=== PATIENT | female | born 1950 | race Caucasian/White ===

== ENCOUNTER 2018-05-03 14:36 | Inpatient (IN) | payer BC, OTHER ==
--- NOTE | 2018-05-03 15:05 | EDPHY ---
H & P Stated Complaint: SOB x 2 weeks worse today Time Seen by Provider: 05/03/18 15:00 HPI/ROS: CHIEF COMPLAINT: Worsening dyspnea HISTORY OF PRESENT ILLNESS: The patient presents to the ED with increasing dyspnea over the past 2 weeks. She reports primarily dyspnea on exertion. She denies orthopnea or PND. The patient has been experiencing significant bilateral lower extremity edema. The patient denies recent contact with the primary care provider. She takes no regular medications. She does not smoke. The patient denies any fever, cough or congestion. She denies any abdominal pain, vomiting or diarrhea. She reports her dyspnea is moderate to severe in nature. REVIEW OF SYSTEMS: A comprehensive 10 point review of systems is otherwise negative aside from elements mentioned in the history of present illness. Source: Patient Exam Limitations: No limitations - Medical/Surgical History Hx Asthma: No Hx Chronic Respiratory Disease: No Hx Diabetes: No Hx Cardiac Disease: No Hx Renal Disease: No Hx Cirrhosis: No Hx Alcoholism: No Hx HIV/AIDS: No Hx Splenectomy or Spleen Trauma: No Other PMH: denies - Social History Smoking Status: Never smoked - Physical Exam Exam: General Appearance: Alert, no distress Eyes: Pupils equal and round no pallor or injection ENT, Mouth: Mucous membranes moist Respiratory: Distant breath sounds bilaterally Cardiovascular: Regular rate and rhythm Gastrointestinal: Abdomen is soft and nontender, no masses, bowel sounds normal Neurological: 5/5 strength noted all 4 extremities Skin: Warm and dry, no rashes, plethora Musculoskeletal: Neck is supple nontender Extremities: 3+ bilateral pitting edema Psychiatric: Patient is oriented X 3, there is no agitation Constitutional: Initial Vital Signs Temperature (C) 36.7 C 05/03/18 14:42 Heart Rate 99 05/03/18 14:42 Respiratory Rate 24 H 05/03/18 14:42 Blood Pressure 178/89 H 05/03/18 14:42 O2 Sat (%) 86 L 05/03/18 14:42 O2 Delivery Mode Room Air O2 (L/minute) 3 Allergies/Adverse Reactions: No Known Allergies Allergy (Unverified 08/08/10 20:58) Home Medications: Medication Instructions Recorded NK [No Known Home Meds] 05/03/18 Medical Decision Making - Diagnostics EKG Interpretation: EKG: Complete interpretation has been separately recorded in the [facility] archive. Summary impression: Sinus rhythm, rate 89, PVCs, bifascicular block Imaging Results: Imaging Impressions Chest X-Ray 05/03/18 15:03 Impression: 1. Cardiomegaly with a small right effusion with associated atelectasis, suggesting CHF. 2. Marked fullness in the right hilum most likely related to pulmonary artery hypertension, however, incompletely assessed on radiographs. CT may be useful for further evaluation. Findings discussed with Dr. Adonis Samuel on 05/03/2018 at 16:17. ED Course/Re-evaluation: The patient presents to the ED with acute hypoxemia and shortness of breath. The patient is noted to have evidence of congestive heart failure which is a new diagnosis. The patient did receive supplemental oxygen. She was treated with 20 mg of IV Lasix. The patient's EKG demonstrated no evidence of active ischemia. The patient's troponin is normal. The patient's proBNP is elevated. I do feel the patient needs to be admitted to the hospital for further evaluation and management of her acute hypoxemic respiratory failure and undiagnosed CHF. Consultation is made with the hospitalist service. I spoke with Dr. Belen Lewis at 4:15 p.m.. She will admit the patient this evening. I re-evaluated the patient at 4:30 p.m.. She is comfortable with the plan for admission and further workup. Differential Diagnosis: Differential diagnosis considered includes congestive heart failure, myocardial infarction, dehydration, metabolic abnormality, critical anemia - Data Points Laboratory Results: Laboratory Results 05/03/18 15:20 05/03/18 15:20 05/03/18 05/03/18 05/03/18 15:26 15:20 15:20 WBC 8.14 10^3/uL 10^3/uL (3.80-9.50) RBC 5.30 10^6/uL 10^6/uL (4.18-5.33) Hgb 17.8 g/dL H g/dL (12.6-16.3) Hct 54.1 % H % (38.0-47.0) MCV 102.1 fL H fL (81.5-99.8) MCH 33.6 pg pg (27.9-34.1) MCHC 32.9 g/dL g/dL (32.4-36.7) RDW 13.7 % % (11.5-15.2) Plt Count 180 10^3/uL 10^3/uL (150-400) MPV 10.7 fL fL (8.7-11.7) Neut % (Auto) 76.0 % H % (39.3-74.2) Lymph % (Auto) 14.4 % L % (15.0-45.0) [place] % (Auto) 7.9 % % (4.5-13.0) Eos % (Auto) 0.7 % % (0.6-7.6) Baso % (Auto) 0.6 % % (0.3-1.7) Nucleat RBC Rel Count 0.0 % % (0.0-0.2) Absolute Neuts (auto) 6.19 10^3/uL 10^3/uL (1.70-6.50) Absolute Lymphs (auto) 1.17 10^3/uL 10^3/uL (1.00-3.00) Absolute Monos (auto) 0.64 10^3/uL 10^3/uL (0.30-0.80) Absolute Eos (auto) 0.06 10^3/uL 10^3/uL (0.03-0.40) Absolute Basos (auto) 0.05 10^3/uL 10^3/uL (0.02-0.10) Absolute Nucleated RBC 0.00 10^3/uL 10^3/uL (0-0.01) Immature Gran % 0.4 % % (0.0-1.1) Immature Gran # 0.03 10^3/uL 10^3/uL (0.00-0.10) Sodium 139 mEq/L mEq/L (135-145) Potassium 5.3 mEq/L H mEq/L (3.5-5.2) Chloride 104 mEq/L mEq/L (97-110) Carbon Dioxide 27 mEq/l mEq/l (22-31) Anion Gap 8 mEq/L mEq/L (6-14) BUN 14 mg/dL mg/dL (7-23) Creatinine 0.8 mg/dL mg/dL (0.6-1.0) Estimated GFR > 60 Glucose 106 mg/dL H mg/dL (70-100) Calcium 9.5 mg/dL mg/dL (8.5-10.4) POC Troponin I 0.03 ng/mL ng/mL (0.00-0.08) NT-Pro-B Natriuret Pep 2540 pg/mL H pg/mL (0-125) Point of Care Test Results: Chemistry 05/03/18 15:26 POC Troponin I 0.03 ng/mL ng/mL (0.00-0.08) Departure - Departure Disposition: [facility] Inpatient Acute Clinical Impression: Acute decompensated heart failure Condition: Fair Referrals: Mark Franco MD [Primary Care Provider] - As per Instructions
[2018-05-03 15:34] LABS: PLATELET COUNT 180 10^3/uL (150-400)
[2018-05-03] MEDS ORDERED: FUROSEMIDE 20 MG/2 ML VIAL IVP ONE (16:19)
--- NOTE | 2018-05-03 16:31 | CPEKG ---
Test Reason : OPEN Blood Pressure : / mmHG Vent. Rate : 089 BPM Atrial Rate : 089 BPM P-R Int : 167 ms QRS Dur : 102 ms QT Int : 381 ms P-R-T Axes : 055 -45 017 degrees QTc Int : 464 ms Sinus rhythm Multiple premature complexes, vent & supraven Probable left atrial enlargement Incomplete RBBB and LAFB Probable anterior infarct, age indeterminate Confirmed by Adonis Samuel ([id number]) on 05/03/2018 4:30:49 PM Referred By: Confirmed By:Adonis Samuel
[2018-05-03] MEDS ORDERED: ONDANSETRON 4 MG/2 ML VIAL IVP PRN (17:00)
[2018-05-03] MEDS ORDERED: ONDANSETRON DISINTEGRATING 4 MG TAB PO PRN (17:00)
[2018-05-03] MEDS ORDERED: oxyCODONE IR 5 MG TAB PO PRN (17:00)
[2018-05-03] MEDS ORDERED: HYDROCODONE/APAP 5/325 TAB PO PRN (17:00)
[2018-05-03] MEDS ORDERED: PROMETHAZINE HCL 25 MG/ML INJ IVP PRN (17:00)
[2018-05-03] MEDS ORDERED: ACETAMINOPHEN 325 MG TAB PO PRN (17:00)
[2018-05-03] MEDS: LISINOPRIL 20 MG TAB PO SCH (17:36)
--- NOTE | 2018-05-03 18:29 | PDGENHP ---
History and Physical - Chief Complaint sob - History of Present Illness 67 yo F with PMH of longstanding untreated HTN and limited access to medical care presents with SOB for the last 2 weeks that became severe in the last 2 days. She has also noticed swelling in her feet and ankles for at least the last several days. She states her BP has always been high when she has had it checked and her oxygen tends to hover in the high 80s but she only has vitals checked at most once per year at what sounds like a health fair through her 's work. She has noted chest tightness for around the last two weeks, but denies pain. She has not had pain in her legs. She does not believe her weight has changed. She states this has never happened to her before. On arrival to the ER it was noted that her oxygen was in the mid 80s on RA. History Information - Allergies/Home Medication List Allergies/Adverse Reactions: No Known Allergies Allergy (Verified 05/03/18 17:00) Home Medications: NK [No Known Home Meds] 05/03/18 [Last Taken Unknown] I have personally reviewed and updated: family history, medical history, social history, surgical history - Past Medical History hypertension (untreated) Additional medical history: obesity. hypoxemia - Surgical History Reports: no pertinent surgical hx - Family History Positive for: non-pertinent - Social History Smoking Status: Never smoked Alcohol Use: Rarely Drug Use: None Additional social history: , lives with her Review of Systems Review of Systems: ROS: 10pt was reviewed & negative except for what was stated in HPI & below Physical Exam Physical Exam: Temp Pulse Resp BP Pulse Ox 36.7 C 89 18 171/118 H 94 05/03/18 18:08 05/03/18 18:08 05/03/18 18:08 05/03/18 18:08 05/03/18 18:08 O2 (L/minute) 3 Constitutional: chronically ill appearing, obese, unkempt Eyes: PERRL, anicteric sclera Ears, Nose, Mouth, Throat: moist mucous membranes, poor dentition Cardiovascular: regular rate and rhythym, no murmur, rub, or gallop, edema Respiratory: no respiratory distress, reduced air movement, inspiratory crackles Gastrointestinal: normoactive bowel sounds, soft, non-tender abdomen Genitourinary: no bladder tenderness Skin: warm, normal color Musculoskeletal: no muscle tenderness Neurologic: AAOx3 Psychiatric: interacting appropriately, not anxious, not encephalopathic Lab Data & Imaging Review 05/03/18 15:20 05/03/18 15:20 WBC 8.14 10^3/uL (3.80-9.50) 05/03/18 15:20 RBC 5.30 10^6/uL (4.18-5.33) 05/03/18 15:20 Hgb 17.8 g/dL (12.6-16.3) H 05/03/18 15:20 Hct 54.1 % (38.0-47.0) H 05/03/18 15:20 MCV 102.1 fL (81.5-99.8) H 05/03/18 15:20 MCH 33.6 pg (27.9-34.1) 05/03/18 15:20 MCHC 32.9 g/dL (32.4-36.7) 05/03/18 15:20 RDW 13.7 % (11.5-15.2) 05/03/18 15:20 Plt Count 180 10^3/uL (150-400) 05/03/18 15:20 MPV 10.7 fL (8.7-11.7) 05/03/18 15:20 Neut % (Auto) 76.0 % (39.3-74.2) H 05/03/18 15:20 Lymph % (Auto) 14.4 % (15.0-45.0) L 05/03/18 15:20 [place] % (Auto) 7.9 % (4.5-13.0) 05/03/18 15:20 Eos % (Auto) 0.7 % (0.6-7.6) 05/03/18 15:20 Baso % (Auto) 0.6 % (0.3-1.7) 05/03/18 15:20 Nucleat RBC Rel Count 0.0 % (0.0-0.2) 05/03/18 15:20 Absolute Neuts (auto) 6.19 10^3/uL (1.70-6.50) 05/03/18 15:20 Absolute Lymphs (auto) 1.17 10^3/uL (1.00-3.00) 05/03/18 15:20 Absolute Monos (auto) 0.64 10^3/uL (0.30-0.80) 05/03/18 15:20 Absolute Eos (auto) 0.06 10^3/uL (0.03-0.40) 05/03/18 15:20 Absolute Basos (auto) 0.05 10^3/uL (0.02-0.10) 05/03/18 15:20 Absolute Nucleated RBC 0.00 10^3/uL (0-0.01) 05/03/18 15:20 Immature Gran % 0.4 % (0.0-1.1) 05/03/18 15:20 Immature Gran # 0.03 10^3/uL (0.00-0.10) 05/03/18 15:20 Sodium 139 mEq/L (135-145) 05/03/18 15:20 Potassium 5.3 mEq/L (3.5-5.2) H 05/03/18 15:20 Chloride 104 mEq/L (97-110) 05/03/18 15:20 Carbon Dioxide 27 mEq/l (22-31) 05/03/18 15:20 Anion Gap 8 mEq/L (6-14) 05/03/18 15:20 BUN 14 mg/dL (7-23) 05/03/18 15:20 Creatinine 0.8 mg/dL (0.6-1.0) 05/03/18 15:20 Estimated GFR > 60 05/03/18 15:20 Glucose 106 mg/dL (70-100) H 05/03/18 15:20 Calcium 9.5 mg/dL (8.5-10.4) 05/03/18 15:20 Total Bilirubin 1.4 mg/dL (0.1-1.4) 05/03/18 15:20 Conjugated Bilirubin 0.6 mg/dL (0.0-0.5) H 05/03/18 15:20 Unconjugated Bilirubin 0.8 mg/dL (0.0-1.1) 05/03/18 15:20 AST 39 IU/L (14-46) 05/03/18 15:20 ALT 38 IU/L (9-52) 05/03/18 15:20 Alkaline Phosphatase 84 IU/L (38-126) 05/03/18 15:20 POC Troponin I 0.03 ng/mL (0.00-0.08) 05/03/18 15:26 Troponin I 0.030 ng/mL (0.000-0.034) 05/03/18 15:20 NT-Pro-B Natriuret Pep 2540 pg/mL (0-125) H 05/03/18 15:20 Total Protein 6.5 g/dL (6.3-8.2) 05/03/18 15:20 Albumin 4.2 g/dL (3.5-5.0) 05/03/18 15:20 Visualized and Interpreted Chest x-ray results: Yes Chest X-Ray results: effusion, other (cardiomegaly, evidence of PAH) Visualized and Interpreted EKG results: Yes EKG Interpretation: Positive for: normal sinsus rhythm EKG additional interpertation: RBBB, LAFB Assessment & Plan Assessment: Acute decompensated heart failure (Acute) 67 yo F with PMH of uncontrolled HTN presenting with new diagnosis chf and acute on chronic hypoxic respiratory failure # acute decompensated chf: new diagnosis, unknown EF. Given IV lasix x 1 in ER and will continue in am, will get echo in am and consult cardiology. Will trend trops overnight. Will check tsh and risk stratify with A1c and lipids. BNP in . Will need further ischemic w/u but will defer timing and test to cardiology # acute on chronic hypoxic respiratory failure: patient states that she has typically been in the high 80s on RA whenever she has had her o2 checked and suspect a component of chronic hypoxemia that has been untreated with likely right heart failure contributing to above. No e/o pna and does not sound c/w PE by history, suspect 2/2 chf as above. # uncontrolled htn: will start lisinopril and prn hydralazine, could be reason for her chf # chest tightness: as per problem 1, will trend trops, monitor on tele, echo in am, further ischemic testing per cards # obesity: BMI of 35, query underlying MILVIA given body habitus and e/o right heart failure # erythrocytosis: likely secondary due to chronic hypoxia, will trend # IP status, will require > 48 hours for eval/mgmt of above Patient new to my care. Old records reviewed and summarized as above. Care plan reviewed with ER doctor, further hx obtained from present at bedside.
[2018-05-03] MEDS: hydrALAZINE 20 MG/ML VIAL IVP PRN (18:38)
[2018-05-04 04:29] LABS: PLATELET COUNT 162 10^3/uL (150-400)
[2018-05-04] MEDS: LISINOPRIL 20 MG TAB PO SCH (09:26)
[2018-05-04] MEDS: FUROSEMIDE 20 MG/2 ML VIAL IVP SCH ×2 (09:26→15:01)
[2018-05-04] MEDS: hydrALAZINE 20 MG/ML VIAL IVP PRN (09:33)
[2018-05-04] MEDS: ENOXAPARIN 40 MG/0.4 ML SYR SC SCH (09:34)
--- NOTE | 2018-05-04 10:07 | PDMN ---
Medical Necessity Medical necessity: MCG: M190 heart failure A-2 days: SOB X 2 weeks, more so in past 2 days, increased swelling in feet and ankles, chest tightness, in ED O2 in mid 80"s RA, EKG shows: NSR, mult. premature complexes, vent and supravent. prob L atrial enlargement, Incomplete RBBB and LAFB, prob ant. infarct , age indeterminate. CXR shows cardiomegaly with sm. R effusion with assoc. atelectasis, suggesting CHF. hx HTN, obesity, anticipate > 2 MN ongoing med nec care, further monitoring,, eval and tx.
--- NOTE | 2018-05-04 10:15 | ECHO ---
[email or web address] [address] Main: [phone] Fax: Transthoracic Echocardiogram Name: ALBA FLOWERS MR#: [id number] Study Date: 05/04/2018 Study Time: 07:53 AM Date of : 1950 Age: 67 year(s) Height: 167.6 cm (66 in.) Weight: 99.79 kg (220 lb.) BSA: 2.08 m2 Gender: Female Examination: Echo Indication: Acute SOB Image Quality: Contrast: Requested by: Belen Lewis BP: 152 mmHg/96 mmHg Heart Rate: Rhythm: Normal sinus rhythm with ectopy Indication: Acute SOB Procedure Staff Wrapper Leaf Inspector: Reuben Currie RDCS Reading Physician: Jeremiah eSgundo MD Requesting Provider: Conclusions: Normal size left ventricle. Mild concentric LV hypertrophy. Global hypercontractility of the left ventricle. EF is 78 %. Grade 1 diastolic dysfunction (abnormal relaxation). Moderately dilated right ventricle. Mildly reduced RV function. Flattened interventricular septum consistent with right ventricular pressure and/or volume overload free wall. The left atrium is mildly dilated. The right atrium is moderately dilated. Moderate aortic cusp calcification is present. Cannot rule out bicuspid aortic valve. Severe calcific aortic valve stenosis. Mild aortic valve regurgitation is present. The AV Vmax is 4.3 m/s with a Ao Mean PG of 54 mmHg and a Max PG of 73 mmHg. Mild to moderate tricuspid valve regurgitation. The pulmonary artery pressure is moderately increased. Right ventricular systolic pressure measures 59mmHg. The IVC is dilated. No pericardial effusion. Measurements: Chambers Valvular Assessment AV/MV Valvular Assessment TV/PV Normal Normal Normal Name Value Range Name Value Range Name Value Range Ao Keiko (MM): 3.3 cm (2.2 cm-3.7 AV Vmax: 4.39 m/s (1 m/s-1.7 TR Vmax: 3.49 mm/s ( - ) cm) m/s) TR PGmax: 49 mmHg ( - ) AV maxP mmHg ( - ) syst. PAP: 59 mmHg ( - ) Patient: ALBA FLOWERS Study Date: 05/04/2018 Page 1 of 2 07:53 AM IVSd (2D): 1.2 cm (0.6 cm-1.1 AV meanP mmHg ( - ) PV Vmax: 1.03 m/s (0.6 m/s-0.9 cm) GWENDOLYN (VTI): 0.8 cm ( - ) m/s) LVDd (2D): 4.2 cm (3.9 cm-5.3 AR (PHT): 380 ms ( - ) PV PGmax: 4 mmHg ( - ) cm) MV E Vmax: 0.70 m/s ( - ) LVDs (2D): 2.2 cm (2.1 cm-4 MV A Vmax: 1.09 m/s ( - ) cm) MV E/A: 0.64 ( - ) LVPWd (2D): 1.2 cm ( - ) LVOTd 2.0 cm 2.0 cm mm LVEF (2D): 78 (>=54 %) RVDd(2D): 4.8 cm (1.9 cm-3.8 cmmm) Continued Measurements: Chambers Valvular Assessment AV/MV Valvular Assessment TV/PV Name Value Name Value Name Value LADs Lon.6 cm MV E' Septal: 0.04 m/s CVP (est.): 10 mmHg LA Area: 23.9 cm2 MV E/E' Septal: 18.00 LA Volume: 82 ml MV E/E' Lateral: 10.60 LA Volume Index: 39.4 ml/m2 AR Vmax: 2.42 cm/s Findings: Left Ventricle: Normal size left ventricle. Mild concentric LV hypertrophy. Global hypercontractility of the left ventricle. EF is 78 %. No regional wall motion abnormality. Grade 1 diastolic dysfunction (abnormal relaxation). Right Ventricle: Moderately dilated right ventricle. Mildly reduced RV function. Flattened interventricular septum consistent with right ventricular pressure and/or volume overload free wall. Left Atrium: The left atrium is mildly dilated. Right Atrium: The right atrium is moderately dilated. Mitral Valve: Mild mitral valve leaflet calcification is present. Mild mitral annular calcification. Mild mitral valve regurgitation is present. Aortic Valve: Moderate aortic cusp calcification is present. Cannot rule out bicuspid aortic valve. Severe calcific aortic valve stenosis. Mild aortic valve regurgitation is present. The AV Vmax is 4.3 m/s with a Ao Mean PG of 54 mmHg and a Max PG of 73 mmHg. Tricuspid Valve: The tricuspid valve appears normal. Mild to moderate tricuspid valve regurgitation. The pulmonary artery pressure is moderately increased. Right ventricular systolic pressure measures 59mmHg. Pulmonic Valve: Pulmonary valve not well visualized. Aorta: The aorta is normal. IVC: The IVC is dilated. Pericardium: No pericardial effusion. (No Signature Object) Patient: ALBA FLOWERS Study Date: 05/04/2018 Page 2 of 2 07:53 AM [id number]
[2018-05-04] MEDS ORDERED: FAMOTIDINE 20 MG TAB PO ONE (12:57)
[2018-05-04] MEDS ORDERED: TEMAZEPAM 15 MG CAP PO PRN (12:57)
[2018-05-04] MEDS ORDERED: diphenhydrAMINE 25 MG CAP PO ONE (12:57)
[2018-05-04] MEDS ORDERED: DIAZEPAM 5 MG TAB PO ONE (12:57)
--- NOTE | 2018-05-04 13:03 | HOSPPROG ---
Hospitalist Progress Note Assessment/Plan: # severe - will likely need replacement on this admit - KECIA tomorrow # indet troponin - R/LHC tomorrow - tele monitoring - coreg started per cards # acute decompensated dCHF - lasix this afternoon, then hold for procedures tomorrow # acute on chronic hypoxic resp failure d/t pulm edema - cont'd diuresis # erythrocythemia - likely d/t chronic resp failure # obesity Subjective: still SOB sitting in bed Objective: Vital Signs Temp Pulse Resp BP Pulse Ox 36.8 C 92 18 123/71 H 92 05/04/18 07:32 05/04/18 11:26 05/04/18 11:26 05/04/18 11:26 05/04/18 11:26 Laboratory Results 05/04/18 03:19 05/04/18 03:19 05/03/18 05/04/18 05/05/18 05:59 05:59 05:59 Intake Total 330 150 Output Total 2900 250 Balance -2570 -100 chart reviewed discussed with Dr Segundo echo reviewed CXR personally reviewed - Physical Exam Constitutional: other (tachypneic) Cardiovascular: regular rate and rhythym, systolic murmur, No irregularly irregular, No diastolic murmur Respiratory: inspiratory crackles, respiratory distress (mod), No reduced air movement, No bronchial breath sounds Gastrointestinal: normoactive bowel sounds, soft, non-tender abdomen, no palpable masses ICD10 Worksheet Patient Problems: Problems Problem Status Onset Acute decompensated heart failure Acute
--- NOTE | 2018-05-04 13:32 | GCON ---
CARDIOLOGY CONSULTATION DATE OF CONSULTATION: 05/04/2018 REFERRING PHYSICIAN: Belen Lewis MD INDICATION FOR CONSULTATION: Shortness of breath, dyspnea on exertion, new onset of lower extremity edema, as well as chest tightness. HISTORY OF PRESENT ILLNESS: The patient is a pleasant 67-year-old female with no past medical histor y who presented to [facility] with chief complaint of progressive shortness of breath , dyspnea on exertion, and new onset of lower extremity edema that has become progressively worse ove r the last 2 weeks. She states that approximately 2 days ago, she noticed a marked increase in sympt oms of shortness of breath and dyspnea, as well as onset of substernal chest tightness that she descr ibes as nonradiating and has been persistent for the last 2 days with no exacerbating or alleviating factors. Currently, at the time of my exam, the patient is experiencing some mild shortness of breath with con versation. She denies any known history of valvular heart disease, although that she does states that approximat aleshia 10 years ago she was told she had a murmur. There was no evaluation at that time. She has no [facility] history of valvular problems or known bicuspid aortic valve. The patient has no history of hyperlipidemia, diabetes, or coronary artery disease. She is a lifelon g nonsmoker. She has no family history of premature coronary disease. She does have untreated hypertension. She states that she has white coat hypertension and monitors h er blood pressure at home, which is elevated with readings primarily in the mid 140s over 90s. She i s not on medical therapy at this time. The patient admits to 2-week history of shortness of breath, dyspnea, substernal chest tightness, exe rcise intolerance, and new onset of lower extremity edema. She denies complaints of PND or orthopnea . She has no complaints of nausea, vomiting, or diaphoresis. No complaints of recent viral illness or infection. No complaints of abdominal pain, back pain, or flank pain. No fevers, chills, sweats. PAST MEDICAL HISTORY: None. PAST SURGICAL HISTORY: None. SOCIAL HISTORY: She is . Her is an traveling electrician. She works as a housekeeping cleaner. She is lifelong nonsmoker. She has a grown daughter who is in her mid 40s. She occasionally drinks alco hol. FAMILY HISTORY: No family history of coronary disease or valvular disease. PHYSICAL EXAMINATION: VITAL SIGNS: Blood pressure is currently 123/71, heart rate of 92 in sinus rh ythm, respiratory rate of 18, oxygen saturation 92% on 2 L nasal cannula. GENERAL: She is awake, al ert, oriented, appropriate, and mildly short of breath with conversation. NECK: There is no evidenc e of JVP or carotid bruits. LUNGS: Clear to auscultation bilaterally. CARDIAC: S1, S2 regular. T here is a 3/6 harsh holosystolic murmur at the right upper sternal border with radiation to the carot ids bilaterally, right greater than left. PMI is not displaced. ABDOMEN: Obese, soft, nontender, n ondistended. Normal bowel sounds. EXTREMITIES: She has 1+ bilateral pitting edema, left greater th an right to the mid calf. LABORATORY/IMAGING: White blood cell count 7.3, hemoglobin of 17.4, hematocrit 52.2, platelets 161. Sodium 141, potassium 3.8, chloride 105, bicarb 25, BUN 14, creatinine 0.6. Troponin initially was 0.030, increased to 0.038, and currently 0.043. N-terminal proBNP 2540. Total cholesterol 150, trig lycerides 87, HDL 67, LDL 66. AST 39, ALT 38. Daily ECG demonstrates normal sinus rhythm with right bundle branch block and left anterior fascicula r block. There is evidence of left atrial enlargement with tall biphasic P-wave in V1, and there is T-wave inversions in V1 to V3. Chest x-ray demonstrates small right pleural effusion. There is right hilar fullness, most likely re lated to pulmonary hypertension. Complete 2D echocardiogram performed this morning demonstrates hyperdynamic LVEF of 78% with mild con centric LVH. There is moderate right ventricular dilatation with mild right ventricular hypokinesis. There is evidence of severe calcific aortic stenosis with peak aortic valve velocity of 4.3 m/sec a nd peak gradient of 73, and mean gradient of 53 mmHg. Cannot exclude bicuspid aortic valve. There i s [id number] tricuspid regurgitation, with moderate pulmonary hypertension with RV systolic pre ssure of 59 mmHg. MEDICATIONS ON ADMISSION: None. ALLERGIES: No known drug allergies. IMPRESSION: 1. New onset of heart failure symptoms of shortness of breath, dyspnea, and lower extremity edema. 2. Severe aortic stenosis. 3. Abnormal ECG with right bundle branch block, left anterior fascicular block, and T-wave inversion s. 4. Mildly elevated troponin. 5. Poorly controlled hypertension. 6. Right ventricular enlargement with right ventricle hypokinesis and moderate pulmonary hypertensio n. SUMMARY: The patient is a pleasant 67-year-old female with new onset of heart failure symptoms with shortness of breath, dyspnea, lower extremity edema, and chest tightness. She does not seek regular medical care. Known history of a murmur for 10 years without previous evaluation. She denies any hi story of infective endocarditis, rheumatic fever, or fenfluramine use in the . Her workup is co nsistent with severe aortic stenosis, cannot visualize aortic valve well enough to determine if this is bicuspid. In the setting of chest tightness and mildly elevated troponin, would recommend further workup with left and right heart catheterization, as well as transesophageal echocardiogram. PLAN: 1. Arrange for left and right heart catheterization for Saturday, May 05, 2018. 2. Arrange for transesophageal echocardiogram to be coordinated at the same time as left and right h eart catheterization for tomorrow. 3. Gradual lowering of blood pressure with permissive hypertension until aortic valve status can be evaluated in greater detail with transesophageal echocardiogram. I have spent approximately 45 minutes with patient reviewing her workup and plan for further evaluati on. I have recommended that she remain in the hospital. She did query about leaving and coming back for outpatient workup. In the setting of her new onset of symptoms and mildly elevated troponin, as well as being short of breath at rest, I explained that I thought that she was best taken care of in the hospital and with completion of workup and plan for potential surgery during this hospitalizatio n. I have placed a phone call to her at her request and have left a voicemail for him to ret urn my phone call. /[id number]/MODL
--- NOTE | 2018-05-04 15:03 | ASMTCMCOM ---
CM Note CM Note Notes: 05/04/2018 Case Management Note Pt admitted for CHF. Pt planning for right and left heart cath Tuesday. PT evaluated pt and is recommending home independent. Met pt during rounds this morning. Pt lives with her and is independent with ADL's prior to admission. Case Management d/c poc: anticipating independent with follow up as directed. Case Management to follow. Date Signed: 05/04/2018 03:02 PM Electronically Signed By:Gisella Gordillo RN
[2018-05-04] MEDS: CARVEDILOL 3.125 MG TAB PO SCH (18:15)
[2018-05-05 04:17] LABS: PLATELET COUNT 158 10^3/uL (150-400)
[2018-05-05 04:35] LABS: INR 1.11 (0.83-1.16); PROTIME(PATIENT) 14.5 SEC (12.0-15.0)
[2018-05-05] MEDS ORDERED: FAMOTIDINE 20 MG TAB PO ONE (06:00)
[2018-05-05] MEDS ORDERED: diphenhydrAMINE 25 MG CAP PO ONE (06:00)
[2018-05-05] MEDS ORDERED: DIAZEPAM 5 MG TAB PO ONE ×2 (06:00)
[2018-05-05] MEDS: CARVEDILOL 3.125 MG TAB PO SCH ×2 (09:18→19:23)
[2018-05-05] MEDS: ENOXAPARIN 40 MG/0.4 ML SYR SC SCH (09:19)
[2018-05-05] MEDS ORDERED: fentaNYL 100 MCG/2 ML INJ ONE (12:33)
[2018-05-05] MEDS ORDERED: LIDOCAINE 1% 300 MG/30 ML SDV ONE (12:33)
[2018-05-05] MEDS ORDERED: MIDAZOLAM 2 MG/2 ML VIAL ONE (12:33)
[2018-05-05] MEDS ORDERED: IOPAMIDOL (ISOVUE-370) 150 ML BTL IV ONE (12:34)
--- NOTE | 2018-05-05 12:42 | HOSPPROG ---
Hospitalist Progress Note Assessment/Plan: 67 yo female admitted with acute CHF # severe - will likely need replacement on this admit - KECIA tomorrow # indet troponin, RV Hypokinesis, abnormal EKG - R/LHC today - tele monitoring - coreg started per cards # acute decompensated dCHF - lasix this afternoon, then hold for procedures this morning -Lasix per Cardiology # acute on chronic hypoxic resp failure d/t pulm edema -diuresis per Cards #Moderate Pulmonary HTN #HTN # erythrocythemia - likely d/t chronic resp failure # obesity Dispo: continue inpatient No changes to current meds await procedures today needs diuretics restarted once appropriate per Cards Subjective: no cp. Some SOB. awaiting procedures/interventions today. still with pedal edema Objective: Vital Signs Temp Pulse Resp BP Pulse Ox 36.6 C 79 18 157/102 H 96 05/05/18 11:22 05/05/18 11:22 05/05/18 11:22 05/05/18 11:22 05/05/18 11:22 Laboratory Results 05/05/18 03:29 05/05/18 03:29 05/04/18 05/05/18 05/06/18 05:59 05:59 05:59 Intake Total 330 1350 Output Total 2900 2900 Balance -2570 -1550 PT 14.5 SEC (12.0-15.0) 05/05/18 03:29 INR 1.11 (0.83-1.16) 05/05/18 03:29 - Time Spent With Patient Time Spent with Patient: greater than 35 minutes Time Spent with Patient: Greater than 35 minutes spent on this patients care, greater than 50% of time spent counseling, educating, and coordinating care regarding the above mentioned plan. - Physical Exam Constitutional: no apparent distress Eyes: PERRL Ears, Nose, Mouth, Throat: moist mucous membranes, hearing normal, ears appear normal Cardiovascular: regular rate and rhythym, edema Respiratory: reduced air movement Gastrointestinal: normoactive bowel sounds, soft, non-tender abdomen Skin: warm Neurologic: AAOx3 Psychiatric: interacting appropriately, not anxious, not encephalopathic Lymph, Heme, Immunologic: No petechiae ICD10 Worksheet Patient Problems: Problems Problem Status Onset Acute decompensated heart failure Acute
--- NOTE | 2018-05-05 14:31 | PDHPUP ---
History & Physical Update H&P update statement: This history and physical update is based on an assessment of the patient which was completed after admission or registration (within 24 hours), but prior to the surgery/procedure. NO new complaints H&P update: H&P reviewed & patient examined, no change in patient's condition since H&P completed
--- NOTE | 2018-05-05 14:35 | PDANEPAE ---
ANE History of Present Illness KECIA and cath for and increased troponin ANE Past Medical History - Cardiovascular History Hx Hypertension: Yes Hx Arrhythmias: Yes Hx Chest Pain: Yes Hx CHF / Valvular Disease: Yes - Pulmonary History Hx Oxygen in Use at Home: No Hx Sleep Apnea: No Pulmonary History Comment: decreased SaO2 on room air - Endocrine History Hx Diabetes: No - Chronic Pain History Chronic Pain: No ANE Review of Systems Review of Systems: - Exercise capacity METS (RN): 2 METS ANE Patient History - Allergies Allergies/Adverse Reactions: No Known Allergies Allergy (Verified 05/03/18 17:00) - Home Medications Home medications: home medication list seen and reviewed Home Medications: NK [No Known Home Meds] 05/03/18 [Last Taken Unknown] - NPO status NPO Status: no food or drink >8 hours - Anes Hx Anes Hx: no prior problems - Smoking Hx Smoking Status: Never smoked - Alcohol Use Alcohol Use: Rarely ANE Labs/Vital Signs - Labs Result Diagrams: 05/05/18 03:29 05/05/18 03:29 - Vital Signs Blood Pressure: 157/102 Heart Rate: 79 Respiratory Rate: 18 O2 Sat (%): 96 Height: 167.64 cm Weight: 96.2 kg ANE Physical Exam - Airway Neck exam: decreased ROM Mallampati Score: Class 2 Mouth exam: poor dentition - Pulmonary Pulmonary: no respiratory distress - Cardiovascular Cardiovascular: regular rate and rhythym - ASA Status ASA Status: IV ANE Anesthesia Plan Anesthesia Plan: general endotracheal anesthesia, MAC (MAC if possible GA if needed)
[2018-05-05] MEDS ORDERED: PROPOFOL 200 MG/20 ML VIAL ONE (14:38)
[2018-05-05] MEDS ORDERED: ETOMIDATE 40 MG/20 ML INJ ONE (14:39)
[2018-05-05] MEDS ORDERED: PHENYLEPHRINE 10 MG/ML SDV ONE (14:40)
[2018-05-05] MEDS ORDERED: ROCURONIUM 50 MG/5 ML VIAL ONE (14:40)
[2018-05-05] MEDS ORDERED: LIDOCAINE 2% 100 MG/5 ML SYR ONE (14:40)
[2018-05-05] MEDS ORDERED: ATROPINE SULFATE 1 MG/10 ML SYR IVP PRN (16:11)
[2018-05-05] MEDS ORDERED: NITROGLYCERIN 0.4 MG BTL SL PRN (16:11)
[2018-05-05] MEDS ORDERED: DEXAMETHASONE 4 MG/ML VIAL IVP PRN (16:14)
[2018-05-05] MEDS ORDERED: LR 500 ML IV PRN (16:14)
[2018-05-05] MEDS ORDERED: ONDANSETRON 4 MG/2 ML VIAL IVP PRN (16:14)
[2018-05-05] MEDS ORDERED: NALOXONE HCL 0.4 MG/ML INJ IVP PRN (16:14)
[2018-05-05] MEDS ORDERED: PHENYLEPHRINE HCL 100 MCG/ML SYR IVP PRN (16:14)
[2018-05-05] MEDS ORDERED: ALBUTEROL 3 ML DEYVIAL IH PRN (16:14)
[2018-05-05] MEDS ORDERED: fentaNYL 100 MCG/2 ML INJ IVP PRN (16:14)
[2018-05-05] MEDS: hydrALAZINE 20 MG/ML VIAL IVP PRN (16:43)
--- NOTE | 2018-05-05 17:12 | PDCARPN ---
Cardiology Progress Note Assessment/Plan: Assessment: 1. Severe Calcific 2. NYHA class III heart failure symptoms 3. Severe Pulmonary hypertension (most likely multifactorial including Severe , obesity and possible underlying MILVIA) 4. Normal coronary arteries Plan: -CT surgery consult for Surgical AVR -Continue current medications -Recommend Pulmonary Consult prior to surgery in the setting of severe pulmonary hypertension. 05/05/18 17:12 Subjective: Mrs. Leal remains denies any progression of sob. No new chest pain. No syncope. KECIA today demonstrated Calcific aortic stenosis. NO sub valvular stenosis. Peak Aortic Velocity of 3.8 m/s from transgastric 5 images. Repeat Transthoracic images demonstrated peak AoV of 4.4 m/s, cosistent with severe . LHC demonstrated normal cors. RHC demosntrated mean wedge of 21, PASP 78, RSVP 84 mmg. See report for details Reviewed/Discussed With: hospitalist, multidisciplinary team Time Spent with Patient: greater than 25 minutes Time Spent with Patient: Greater than 25 minutes spent on this patients care, greater than 50% of time spent counseling, educating, and coordinating care regarding the above mentioned plan. Objective: Vital Signs (8 Hrs) Temp Pulse Resp BP Pulse Ox 05/05/18 16:43 179/119 H 05/05/18 14:35 79 18 157/102 H 96 05/05/18 11:22 36.6 C 79 18 157/102 H 96 05/05/18 09:18 129/89 H Intake/Output (24 Hrs) 05/04/18 05/05/18 05/06/18 05:59 05:59 05:59 Intake Total 330 1350 Output Total 2900 2900 Balance -2570 -1550 Intake: Oral (ml) 300 1350 IV Infused (ml) 30 Output: Urine (ml) 2900 2900 Bedside Commode 1550 2900 Other: Weight 98.7 kg 96.2 kg 96.2 kg Result Diagrams: 05/05/18 03:29 05/05/18 03:29 Cardiac Labs: Cardiac Lab Results (72 Hrs) 05/04/18 05/03/18 00:15 19:18 Troponin I 0.043 H 0.038 H - Physical Exam Constitutional: obese Ears, Nose, Mouth, Throat: moist mucous membranes Cardiovascular: regular rate and rhythm, systolic murmur, pulses symmetric bilat , other (Bilateral LE edema. ) Respiratory: clear to auscultate bilat Neurologic: AAOx3, CN II-XII grossly intact Psychiatric: cooperative, interactive, following commands ICD10 Worksheet Patient Problems: Problems Problem Status Onset Acute decompensated heart failure Acute
--- NOTE | 2018-05-06 06:12 | CPIP ---
DATE OF PROCEDURE: 05/05/2018 PROCEDURE PERFORMED: Left and right heart catheterization. INDICATION FOR PROCEDURE: New onset of shortness of breath, dyspnea on exertion, class 3 systolic co ngestive heart failure symptoms, and mildly elevated troponin. PROCEDURE: After informed consent was obtained for left and right heart catheterization, Mrs. Maldonado lyons was brought to the cardiac catheterization lab. With assistance of anesthesia, she was sedated. Anesthesia was involved in this case because prior to left heart catheterization, patient underwent transesophageal echocardiogram. Please see separate per report for details. After an informed consent was obtained, the patient was sedated with anesthesia. Once appropriate le patric of sedation was achieved, a 6-Taiwanese sheath was placed into the right common femoral artery using the modified Seldinger micropuncture technique. A second 7-Taiwanese sheath was placed in the right co mmon femoral vein with modified Seldinger technique. [place] catheter was used to obtain wedge pressure, pulmonary artery pressure, right ventricular pr essure, right atrial pressure. Oxygen saturations were obtained at the pulmonary artery, right ventr icle, right atrium, as well as from the arterial system. Right heart catheterization demonstrated pulmonary capillary wedge pressure of 18 mmHg, pulmonary art meagan pressure of 78/42, RV pressure of 83/5, right atrial pressure mean of 25, aortic pressure of 131/ 84 with a mean of 105, cardiac output 4.91 L/minute, cardiac index 2.39 L/minute per sq m. After completion of right heart catheterization, patient underwent left heart catheterization. A JL4 catheter was used to take images of the left coronary anatomy in multiple projections. The JL4 cath eter was removed over a guidewire for a JR4 catheter. JR4 catheter was used to [facility] in multiple [facility]. JR4 catheter was exchanged over a guidewire. No attem pts at crossing the aortic valve were made in the setting of severe calcific aortic stenosis, previou sly documented on transthoracic as well as transesophageal echocardiogram. FINDINGS: 1. Left main normal size and caliber, bifurcates into a left anterior descending and left circumflex coronary artery. There is no evidence of coronary disease in the left main. 2. Left anterior descending is a normal vessel. There is a moderate size 1st, 2nd, and 3rd diagonal branch with no evidence of coronary disease. The LAD wraps around the LV apex. LAD is normal. Lef t circumflex vessel gives rise to a large 1st obtuse marginal branch. There is no evidence of butcher ry disease within the obtuse marginal branch or circumflex vessel. 3. The right coronary artery is a dominant vessel. There is a large RV marginal branch. It bifurca rylie into PDA and PLV branch. There is no evidence of coronary disease within the right coronary german ry. 4. Imaging of the right common femoral artery was obtained, demonstrating appropriate placement of t he 6-Taiwanese sheath below the inguinal ligament and above the femoral artery bifurcation appropriate f or Angio-Seal deployment. CONCLUSIONS: 1. Normal coronary arteries. 2. Moderate to severe pulmonary hypertension. 3. Known severe calcific aortic stenosis based off transthoracic and transesophageal echocardiogram. PLAN: 1. The patient will remain in the hospital. 2. Patient will undergo a CT surgery consultation for plan for surgical aortic valve replacement. 3. No indication for coronary artery bypass grafting. Patient will require further evaluation of un derlying pulmonary hypertension with evaluation of sleep apnea and further imaging of her lungs. /[id number]/MODL
--- NOTE | 2018-05-06 06:12 | CPR ---
DATE OF PROCEDURE: 05/05/2018 PROCEDURE PERFORMED: Transesophageal echocardiogram. INDICATION FOR PROCEDURE: Severe aortic stenosis seen on transthoracic echocardiogram with inability to assess valvular status of the aortic valve. PROCEDURE: After informed consent was obtained for transesophageal echocardiogram as well as for ane sthesia, the patient was brought to the cardiovascular lab. KECIA was done prior to left and right hea rt catheterization. The procedure was done with the assistance of Anesthesia. Once appropriate level of sedation was achieved, KECIA probe was passed without incident. KECIA probe wa s used to take images of the aortic valve in short as well as long axis as well as transgastric 5 tami ges. Please see echocardiogram report for full details. KECIA demonstrated severe calcific aortic stenosis with reduced leaflet movement. Peak velocity of 3.8 m/sec on transthoracic transesophageal images. Transthoracic peak velocity of 4.4 m/sec consistent with severe aortic stenosis. KECIA probe was removed without incident and the patient tolerated the procedure well. There were no p ostoperative complications. CONCLUSIONS: Severe calcific aortic stenosis. /[id number]/MODL
--- NOTE | 2018-05-06 07:54 | PDHPUP ---
History & Physical Update H&P update statement: This history and physical update is based on an assessment of the patient which was completed after admission or registration (within 24 hours), but prior to the surgery/procedure. Stephanie is a pleasant 67 year old with recent progressive shortness of breath. She is admitted w CHF and echo shows critical aortic stenosis w preserved LVEF Cath reveals normal coronaries. Also noted is severe pulmonary htn. Due to her obesity, severe pulm htn, and mobility issues related to weight, she is at increased risk for surgical AVR. TAVR should be strongly considered and i recommend CT and then TAVR this admission. H&P update: H&P reviewed & patient examined, no change in patient's condition since H&P completed
[2018-05-06] MEDS: ENOXAPARIN 40 MG/0.4 ML SYR SC SCH (09:52)
[2018-05-06] MEDS: CARVEDILOL 3.125 MG TAB PO SCH ×2 (09:52→18:29)
--- NOTE | 2018-05-06 10:31 | PDCARPN ---
Cardiology Progress Note Chief Complaint: Dyspnea, chest discomfort Assessment/Plan: Assessment: Taking over Care from Jeremiah Segundo MD First time seeing patient. 1. Severe Calcific -- Dr Sierra consulted yesterday with recommendation for TAVR rather than AVR due to her high risk at this time Dr Sierra has consulted with Dr Ordonez regarding TAVR. Dr Ordonez has ordered CTA Chest, CTA Abdomen, and Carotid U/S to be done this . Dr Ordonez will see her Tuesday morning. I reviewed the plan with Stephanie, and she is in agreement with this plan. 2. NYHA class III heart failure symptoms 3. Severe Pulmonary hypertension (most likely multifactorial including Severe , obesity and possible underlying MILVIA) 4. Normal coronary arteries Plan: -CT surgery consult for Surgical AVR -Continue current medications -Recommend Pulmonary Consult prior to surgery in the setting of severe pulmonary hypertension. Plan: TAVR rather than AVR per recommendation of Dr Sierra. Dr Ordonez will consult with her on Tuesday. Meanwhile, pre TAVR testing will be done. I spoke with Dr Mike Sewell with Hospitalist service to update him on this plan. 05/06/18 10:21 05/06/18 10:31 Subjective: Tired and weak, but breathing better Reviewed/Discussed With: hospitalist, multidisciplinary team Time Spent with Patient: greater than 25 minutes Time Spent with Patient: Greater than 25 minutes spent on this patients care, greater than 50% of time spent counseling, educating, and coordinating care regarding the above mentioned plan. Objective: Vital Signs (8 Hrs) Temp Pulse Resp BP Pulse Ox 05/06/18 04:00 36.8 C 80 20 119/77 98 Intake/Output (24 Hrs) 05/05/18 05/06/18 05/07/18 05:59 05:59 05:59 Intake Total 1350 1220 360 Output Total 2900 850 Balance -1550 370 360 Intake: Oral (ml) 1350 420 360 IV Intake (ml) 800 Output: Urine (ml) 2900 850 Bedside Commode 2900 850 Other: Weight 96.2 kg 96.8 kg Intake Quantity Yes Sufficient Number of Voids Bedside Commode 3 Result Diagrams: 05/05/18 03:29 05/05/18 03:29 Cardiac Labs: Cardiac Lab Results (72 Hrs) 05/04/18 05/03/18 00:15 19:18 Troponin I 0.043 H 0.038 H - Physical Exam Constitutional: no apparent distress Cardiovascular: regular rate and rhythm, systolic murmur Respiratory: clear to auscultate bilat, no crackles, no wheezes Skin: warm Neurologic: AAOx3 Psychiatric: cooperative, interactive ICD10 Worksheet Patient Problems: Problems Problem Status Onset Acute decompensated heart failure Acute
[2018-05-06] MEDS ORDERED: IOPAMIDOL (ISOVUE 370) 100 ML BTL IV ONE (11:12)
--- NOTE | 2018-05-06 12:23 | GCON ---
DATE OF CONSULTATION: 05/06/2018 Patient seen at the request of Dr. Segundo with the patient's permission. IMPRESSION: 1. Critical aortic stenosis with new onset of congestive heart failure. 2. Normal coronary arteries. 3. Obesity. 4. Pulmonary hypertension. 5. Hypertension. RECOMMENDATIONS: This patient is being evaluated for consideration for surgical aortic valve replace ment. She was seen by Dr. Ordonez, who recommended a TAVR with surgical backup. We will proceed wit h completion of her evaluation for TAVR. Risks and complications of TAVR versus SAVR were reviewed a t length with the patient. MEDICAL HISTORY: This is as 67-year-old female admitted with congestive heart failure, found to have critical aortic stenosis. Diagnostic left heart catheterization revealed normal coronaries. PAST MEDICAL HISTORY: As stated. PAST SURGICAL HISTORY: Include no pertinent surgeries. SOCIAL HISTORY: She never smoked. She rarely uses alcohol. She is and lives with her new [facility]. PHYSICAL EXAMINATION: GENERAL: This is an obese, unkempt, chronically ill-appearing female in no ap parent distress. HEENT: Normocephalic. PERRLA. EOMI. NECK: With transmitted bruits. HEART: Ra te regular with systolic murmur of aortic stenosis. LUNGS: Diminished at the bases. ABDOMEN: Prot uberant, nontender. Bowel sounds are active. EXTREMITIES: Without edema or cyanosis. Please see cath and echo report for details. Hematocrit is 54. /[id number]/MODL
--- NOTE | 2018-05-06 16:23 | HOSPPROG ---
Hospitalist Progress Note Assessment/Plan: DIAGNOSES: # severe , symptomatic with CHF * She has been seen by cardiovascular surgery and at this time TAVR is recommended and the patient is in agreement to proceed * Most likely this will occur sometime around Tuesday of this week, patient will need to stay in house until that time for management of her heart failure and ongoing assessments # absence of coronary disease on angiography # acute decompensated valvular/dCHF * Improved after diuresis which is currently held as she is stable #Moderate Pulmonary HTN * Suspect multifactorial #HTN currently well controlled # erythrocythemia - likely d/t chronic resp failure, though macrocytosis is present # obesity PLANS: * Ongoing preparation for TAVR * Continue Coreg * No diuresis at this time but follow her respiratory status closely Seen by me today on hospitals rounds and multidisciplinary rounds I reviewed in detail today with Kina De Jesus The patient had several good questions and I answered those for her in detail today SUBJECTIVE: Patient tired but otherwise feels well No angina or shortness of breath, not lightheaded but not getting up OBJECTIVE Vitals reviewed: Stable without fever Operating Room Registered Nurse, my review: Sinus Exam: alert oriented skin warm dry color ok resps not labored lungs clear BSs heart regular, audible systolic murmur abd soft nondistended nontender, bowel sounds present iv site ok I reviewed images from CT scans of the chest abdomen pelvis today. No aneurysms dissections or other acute vascular issues or other concerning problems Objective: Vital Signs Temp Pulse Resp BP Pulse Ox 37.0 C 78 20 143/91 H 91 L 05/06/18 12:00 05/06/18 12:00 05/06/18 12:00 05/06/18 12:00 05/06/18 12:00 Laboratory Results 05/05/18 03:29 05/05/18 03:29 05/05/18 05/06/18 05/07/18 06:59 06:59 06:59 Intake Total 1350 1220 360 Output Total 2900 850 Balance -1550 370 360 PT 14.5 SEC (12.0-15.0) 05/05/18 03:29 INR 1.11 (0.83-1.16) 05/05/18 03:29 - Time Spent With Patient Time Spent with Patient: greater than 35 minutes Time Spent with Patient: Greater than 35 minutes spent on this patients care, greater than 50% of time spent counseling, educating, and coordinating care regarding the above mentioned plan. ICD10 Worksheet Patient Problems: Problems Problem Status Onset Acute decompensated heart failure Acute
[2018-05-06] MEDS ORDERED: POLYETHYLENE GLYCOL 3350 17 GM PKT PO PRN (19:40)
[2018-05-06] MEDS ORDERED: LACTULOSE 20 GM/30 ML UDCUP PO PRN (19:40)
[2018-05-06] MEDS ORDERED: BISACODYL 10 MG SUPP PR PRN (19:40)
[2018-05-06] MEDS ORDERED: MAGNESIUM HYDROXIDE 30 ML UDCUP PO PRN (19:40)
[2018-05-06] MEDS: SENNOSIDES/DOCUSATE SODIUM TAB PO SCH (20:20)
[2018-05-07] MEDS: ENOXAPARIN 40 MG/0.4 ML SYR SC SCH (09:10)
[2018-05-07] MEDS: SENNOSIDES/DOCUSATE SODIUM TAB PO SCH ×2 (09:10→22:00)
[2018-05-07] MEDS: CARVEDILOL 3.125 MG TAB PO SCH ×2 (09:10→17:59)
--- NOTE | 2018-05-07 09:47 | ASMTCMCOM ---
CM Note CM Note Notes: Patient has been evaluated by CT surgery, and TAVR has been recommended. Tentative surgery date of 05/09. She has not had any Case Management needs as of yet, but we will follow should this change after surgery. Date Signed: 05/07/2018 09:46 AM Electronically Signed By:Laura Deng RN
--- NOTE | 2018-05-07 10:15 | PDCARPN ---
Cardiology Progress Note Assessment/Plan: Assessment: entered in error Plan: 05/07/18 16:16 Objective: Vital Signs (8 Hrs) Temp Pulse Resp BP Pulse Ox 05/07/18 07:51 36.4 C 69 20 145/97 H 93 05/07/18 04:00 36.6 C 74 18 146/96 H 93 Intake/Output (24 Hrs) 05/06/18 05/07/18 05/08/18 05:59 05:59 05:59 Intake Total 1220 1590 Output Total 850 450 Balance 370 1140 Intake: Oral (ml) 420 1590 IV Intake (ml) 800 Output: Urine (ml) 850 450 Bedside Commode 850 Toilet 450 Other: Weight 96.8 kg 97.4 kg Intake Quantity Yes Sufficient Number of Voids Bedside Commode 3 3 Toilet 3 Result Diagrams: 05/05/18 03:29 05/05/18 03:29 Echocardiogram: KECIA and TTE personally reviewed. ICD10 Worksheet Patient Problems: Problems Problem Status Onset Acute decompensated heart failure Acute
[2018-05-07] MEDS: ASPIRIN 325 MG TAB PO SCH (10:34)
--- NOTE | 2018-05-07 10:34 | PDCARPN ---
Cardiology Progress Note Assessment/Plan: Assessment/plan: 67-year-old female with systemic hypertension, pulmonary hypertension, severe aortic stenosis with possible bicuspid aortic valve. She was admitted on May 03 with left diastolic and right heart acute on chronic failure. Found to have normal coronaries with valvular disease as above. 1. Critical aortic stenosis: Given her pulmonary hypertension and obesity she is deemed a candidate for TAVR by Dr. Louis and Dr. Ramos. She has had prerequisite abdominal, chest and iliac imaging. Tentative plan would be for this coming Tuesday. Avoid significant vasodilation and over-diuresis. 2. Hypertension: Improved with low-dose Coreg. 3. Pulmonary hypertension and right heart failure as well as chronic hypoxia: Likely multifactorial, in part related to diastolic left heart failure and valvular disease. Will need ongoing outpatient evaluation as well. Suspect some component of chronic hypoxia related to living in elevation and possibly sleep apnea versus obesity hypoventilation given her polycythemia. 4. Non flow-limiting carotid disease on ultrasound this admission with possible ulcerated plaque: Start aspirin and low-dose statin. Greater than 30 min spent in chart review, image review, patient contact and discussion with other physicians 05/07/18 10:46 Subjective: She is currently walking with physical therapy. She denies dizziness. Dyspnea is improved. No chest pain. Reviewed/Discussed With: other (Dr. Louis and Dr. Ramos. Dr. Sewell) Objective: Vital Signs (8 Hrs) Temp Pulse Resp BP Pulse Ox 05/07/18 07:51 36.4 C 69 20 145/97 H 93 05/07/18 04:00 36.6 C 74 18 146/96 H 93 Intake/Output (24 Hrs) 05/06/18 05/07/18 05/08/18 05:59 05:59 05:59 Intake Total 1220 1590 Output Total 850 450 Balance 370 1140 Intake: Oral (ml) 420 1590 IV Intake (ml) 800 Output: Urine (ml) 850 450 Bedside Commode 850 Toilet 450 Other: Weight 96.8 kg 97.4 kg Intake Quantity Yes Sufficient Number of Voids Bedside Commode 3 3 Toilet 3 No acute distress. Walking in the west. Remainder of exam deferred due to working with physical therapy Result Diagrams: 05/05/18 03:29 05/05/18 03:29 Telemetry: Sinus rhythm with PVCs Echocardiogram: Reviewed KECIA and TTE from this admission ICD10 Worksheet Patient Problems: Problems Problem Status Onset Acute decompensated heart failure Acute
[2018-05-07] MEDS: ATORVASTATIN CALCIUM 20 MG TAB PO SCH (10:47)
--- NOTE | 2018-05-07 12:29 | HOSPPROG ---
Hospitalist Progress Note Assessment/Plan: DIAGNOSES: # severe , symptomatic with CHF * She has been seen by cardiovascular surgery and at this time TAVR is recommended and the patient is in agreement to proceed * Most likely this will occur sometime around Tuesday of this week, patient will need to stay in house until that time for management of her heart failure and ongoing assessments # absence of coronary disease on angiography # acute decompensated valvular/dCHF * Improved after diuresis which is currently held as she is stable #Moderate Pulmonary HTN * Suspect multifactorial #HTN currently well controlled # erythrocythemia - likely d/t chronic resp failure, though macrocytosis is present # obesity PLANS: * Ongoing preparation for TAVR * Continue Coreg * No diuresis at this time but follow her respiratory status closely Seen by me today on hospitals rounds and multidisciplinary rounds I reviewed in detail today with Dr. Zuly Peña SUBJECTIVE: Little bit less tired today, up walking more Slightly weak but no change from yesterday No chest pain or dyspnea today OBJECTIVE Vitals reviewed: Stable without fever Staff Therapist, my review: Sinus Exam: alert oriented skin warm dry color ok resps not labored lungs clear BSs heart regular, audible systolic murmur abd soft nondistended nontender, bowel sounds present iv site ok Objective: Vital Signs Temp Pulse Resp BP Pulse Ox 36.7 C 76 20 113/57 L 93 05/07/18 12:00 05/07/18 12:00 05/07/18 12:00 05/07/18 12:00 05/07/18 12:00 Laboratory Results 05/05/18 03:29 05/05/18 03:29 05/06/18 05/07/18 05/08/18 06:59 06:59 06:59 Intake Total 1220 1590 Output Total 850 450 Balance 370 1140 PT 14.5 SEC (12.0-15.0) 05/05/18 03:29 INR 1.11 (0.83-1.16) 05/05/18 03:29 ICD10 Worksheet Patient Problems: Problems Problem Status Onset Acute decompensated heart failure Acute
[2018-05-08] MEDS: SENNOSIDES/DOCUSATE SODIUM TAB PO SCH ×2 (07:48→22:16)
[2018-05-08] MEDS: ENOXAPARIN 40 MG/0.4 ML SYR SC SCH (10:03)
[2018-05-08] MEDS: ATORVASTATIN CALCIUM 20 MG TAB PO SCH (10:03)
[2018-05-08] MEDS: CARVEDILOL 3.125 MG TAB PO SCH ×2 (10:03→19:46)
[2018-05-08] MEDS: ASPIRIN 325 MG TAB PO SCH (10:03)
--- NOTE | 2018-05-08 10:18 | GCON ---
TRANSCATHETER AORTIC VALVE REPLACEMENT CONSULTATION CHIEF COMPLAINT: Shortness of breath, heart failure. HISTORY OF PRESENT ILLNESS: This is a 67-year-old female who has not had followup medical care as an outpatient who presented to [facility] with complaints of shortness of breath and appeared to be in heart f ailure. Her workup revealed normal coronary arteries with critical aortic stenosis. Patient had bee n seen by both Dr. Ramos and Dr. Bonifacio Louis from CT surgery. This consult has been performed after both CT surgeons have evaluated the patient. The patient was evaluated by CT surgery and deemed to be a suitable candidate for TAVR, rather than open heart surgery, secondary to her morbid obesity/sig nificantly elevated pulmonary pressures in the high 70s. I have spoken with Dr. Ramos at length abo ut the patient's clinical situation and he feels that TAVR would be a safer route given the comorbid issues, and this opinion was agreed on by Dr. Louis as a second surgical opinion. Currently, she is resting quietly, denies any active discomfort, but does indicate having dyspnea with minimal exertion . PAST MEDICAL HISTORY: Significant for hypertension, new diagnosis of critical aortic stenosis. FAMILY HISTORY: Noncontributory. REVIEW OF SYSTEMS: Patient currently denies any visual changes. No headache. No throat pain. No e ar pain. No shoulder pain. No back pain. She has no chest pain. She does indicate having moderate dyspnea with minimal exertion. No abdominal pain. No lower extremity pain. PHYSICAL EXAM: VITAL SIGNS: Afebrile 96, blood pressure 130/70 with a heart rate 72, respiratory ra te 12, 95% on 2 L nasal cannula. HEENT: Pupils equal, round, reactive to light and accommodation. Extraocular movements intact. CARDIOVASCULAR: Regular rate and rhythm S1, S2. There is a 3/6 systo lic murmur heard throughout the precordium. LUNGS: Decreased breath sounds at the bases. ABDOMEN: Obese, soft, nontender. No guarding. EXTREMITIES: There is no clubbing, no cyanosis, no edema. N EUROLOGIC: The patient is alert x3. LABORATORY VALUES: Currently pending at this point. ASSESSMENT/PLAN: Shortness of breath/heart failure. At this time, the patient has had a thorough wo rkup, including a surface echo, KECIA, cardiac catheterization, which revealed severe aortic stenosis. Given the patient's underlying symptoms, as well as her echocardiographic findings, she was evaluate d for aortic valve replacement. Dr. Ramos from cardiothoracic surgery did evaluate the patient and felt the patient given her comorbid issues would be better suited with transcatheter aortic valve rep lacement. This was agreed on by Dr. Louis. This consult is now being done as part of the transcatheter aortic valve replacement team for evaluat ion for potential transcatheter aortic valve replacement in the next 24 hours. Again, this consult i s being done after both cardiothoracic surgeons have agreed that the patient is a suitable transcathe ter aortic valve replacement candidate. I have informed the patient of the risks, possible complicat ions of the transcatheter aortic valve replacement procedure, including bleeding, stroke, infection, and possible . She would like to proceed with this procedure at this time. Will make the patie nt n.p.o. after midnight tonight and plan on performing the transcatheter aortic valve replacement wi thin next [address] scans have been thoroughly evaluated. /[id number]/MODL
[2018-05-08] MEDS ORDERED: IOPAMIDOL (ISOVUE-370) 150 ML BTL IV ONE (10:52)
--- NOTE | 2018-05-08 11:16 | PDCARPN ---
Cardiology Progress Note Chief Complaint: SOB Assessment/Plan: Assessment: severe symptomatic HF Plan: 05/08/18 11:[address] Stubbs plan on TAVR in AM full consult dictated NPO after 12 AM Subjective: stable Reviewed/Discussed With: multidisciplinary team Time Spent with Patient: greater than 25 minutes Time Spent with Patient: Greater than 25 minutes spent on this patients care, greater than 50% of time spent counseling, educating, and coordinating care regarding the above mentioned plan. Objective: Vital Signs (8 Hrs) Temp Pulse Resp BP Pulse Ox 05/08/18 08:00 36.8 C 69 16 152/109 H 92 05/08/18 04:00 36.7 C 72 20 143/90 H 92 Intake/Output (24 Hrs) 05/07/18 05/08/18 05/09/18 05:59 05:59 05:59 Intake Total 1590 1585 Output Total 450 2100 325 Balance 1140 -515 -325 Intake: Oral (ml) 1590 1585 Output: Urine (ml) 450 2100 325 Toilet 450 2100 325 Other: Weight 97.4 kg 97.5 kg Number of Voids Bedside Commode 3 Toilet 3 5 Number of Stools Toilet 1 Result Diagrams: 05/05/18 03:29 05/05/18 03:29 - Physical Exam Constitutional: no apparent distress Eyes: PERRL Ears, Nose, Mouth, Throat: moist mucous membranes Cardiovascular: regular rate and rhythm, systolic murmur Peripheral Pulses: 1+: femoral (R), femoral (L) Respiratory: reduced air movement Gastrointestinal: normoactive bowel sounds Genitourinary: no suprapubic tenderness Skin: no rashes Musculoskeletal: no muscular tenderness Neurologic: AAOx3 Psychiatric: cooperative ICD10 Worksheet Patient Problems: Problems Problem Status Onset Acute decompensated heart failure Acute
[2018-05-08] MEDS ORDERED: LIDOCAINE 1% 300 MG/30 ML SDV ONE (16:22)
[2018-05-08] MEDS ORDERED: THROMBIN (BOVINE) 5,000 UNIT VIAL TP ONE (16:22)
--- NOTE | 2018-05-08 17:42 | HOSPPROG ---
Hospitalist Progress Note Assessment/Plan: DIAGNOSES: # severe , symptomatic with CHF * She has been seen by cardiovascular surgery and at this time TAVR is recommended and the patient is in agreement to proceed * Procedure currently planned for tomorrow # absence of coronary disease on angiography # acute decompensated valvular/dCHF * Improved after diuresis which is currently held as she is stable #Moderate Pulmonary HTN * Suspect multifactorial #HTN currently well controlled # erythrocythemia - likely d/t chronic resp failure, though macrocytosis is present # obesity PLANS: * Ongoing preparation for TAVR * Continue Coreg * No diuresis at this time but follow her respiratory status closely Seen by me today on hospitals rounds and multidisciplinary rounds SUBJECTIVE: Feels better overall today No acute cardiac symptoms OBJECTIVE Vitals reviewed: Stable without fever Leather Roller, my review: Sinus Exam: alert oriented skin warm dry color ok resps not labored lungs clear BSs heart regular, audible systolic murmur abd soft nondistended nontender, bowel sounds present iv site ok Objective: Vital Signs Temp Pulse Resp BP Pulse Ox 36.5 C 70 18 144/89 H 90 L 05/08/18 16:00 05/08/18 16:00 05/08/18 16:00 05/08/18 16:00 05/08/18 16:00 Laboratory Results 05/05/18 03:29 05/05/18 03:29 05/07/18 05/08/18 05/09/18 06:59 06:59 06:59 Intake Total 1590 1585 Output Total 450 2100 525 Balance 1140 -515 -525 PT 14.5 SEC (12.0-15.0) 05/05/18 03:29 INR 1.11 (0.83-1.16) 05/05/18 03:29 ICD10 Worksheet Patient Problems: Problems Problem Status Onset Acute decompensated heart failure Acute
[2018-05-09] MEDS ORDERED: NS 1,000 ML IV ONE ×2 (06:30→12:22)
[2018-05-09] MEDS ORDERED: IOPAMIDOL (ISOVUE-370) 150 ML BTL IV ONE (06:44)
[2018-05-09] MEDS ORDERED: LIDOCAINE 1% 300 MG/30 ML SDV ONE ×2 (06:44→14:07)
--- NOTE | 2018-05-09 06:55 | PDCARPN ---
Cardiology Progress Note Chief Complaint: SOB Assessment/Plan: Assessment: severe symptomatic HF Plan: 05/08/18 11:[address] Stubbs plan on TAVR in AM full consult dictated NPO after 12 AM 05/09/18 06:53 Stable right groin pseudoaneurysm from prior cath--treated with thrombin NPO plan for TAVR this AM Subjective: stable Reviewed/Discussed With: multidisciplinary team Time Spent with Patient: greater than 25 minutes Time Spent with Patient: Greater than 25 minutes spent on this patients care, greater than 50% of time spent counseling, educating, and coordinating care regarding the above mentioned plan. Objective: Vital Signs (8 Hrs) Temp Pulse Resp BP Pulse Ox 05/09/18 04:00 36.8 C 73 12 136/89 H 92 05/08/18 23:03 36.6 C 75 12 139/94 H 94 Intake/Output (24 Hrs) 05/08/18 05/09/18 05/10/18 05:59 05:59 05:59 Intake Total 1585 Output Total 2100 945 Balance -515 -945 Intake: Oral (ml) 1585 Output: Urine (ml) 2100 945 Bedside Commode 300 Toilet 2100 645 Other: Weight 97.5 kg 97.1 kg Intake Quantity Yes Sufficient Number of Voids Toilet 5 Number of Stools Toilet 1 Result Diagrams: 05/05/18 03:29 05/05/18 03:29 - Physical Exam Constitutional: no apparent distress Eyes: PERRL Ears, Nose, Mouth, Throat: moist mucous membranes Cardiovascular: regular rate and rhythm, systolic murmur Peripheral Pulses: 1+: femoral (R), femoral (L) Respiratory: clear to auscultate bilat Gastrointestinal: normoactive bowel sounds Genitourinary: no suprapubic tenderness Skin: no rashes Musculoskeletal: no muscular tenderness Psychiatric: cooperative ICD10 Worksheet Patient Problems: Problems Problem Status Onset Acute decompensated heart failure Acute
[2018-05-09] MEDS ORDERED: ceFAZolin 2 GM/DEXTROSE 100 ML IV ONE ×2 (07:00→14:03)
[2018-05-09] MEDS ORDERED: VERAPAMIL 5 MG/2 ML VIAL ONE (07:24)
--- NOTE | 2018-05-09 07:24 | PDANEPAE ---
ANE History of Present Illness TAVR ANE Past Medical History - Cardiovascular History Hx Hypertension: Yes Hx Arrhythmias: Yes Hx Chest Pain: Yes Hx CHF / Valvular Disease: Yes - Pulmonary History Hx Oxygen in Use at Home: No Hx Sleep Apnea: No Pulmonary History Comment: decreased SaO2 on room air - Endocrine History Hx Diabetes: No - Chronic Pain History Chronic Pain: No ANE Review of Systems Review of Systems: - Exercise capacity METS (RN): 2 METS ANE Patient History - Allergies Allergies/Adverse Reactions: No Known Allergies Allergy (Verified 05/03/18 17:00) - Home Medications Home medications: home medication list seen and reviewed Home Medications: NK [No Known Home Meds] 05/03/18 [Last Taken Unknown] - Smoking Hx Smoking Status: Never smoked - Alcohol Use Alcohol Use: Rarely ANE Labs/Vital Signs - Labs Result Diagrams: 05/05/18 03:29 05/05/18 03:29 - Vital Signs Blood Pressure: 136/89 Heart Rate: 73 Respiratory Rate: 12 O2 Sat (%): 92 Height: 167.64 cm Weight: 97.1 kg ANE Physical Exam - Airway Neck exam: FROM Mallampati Score: Class 2 Mouth exam: normal dental/mouth exam - Pulmonary Pulmonary: no respiratory distress - Cardiovascular Cardiovascular: regular rate and rhythym - ASA Status ASA Status: IV ANE Anesthesia Plan Anesthesia Plan: general endotracheal anesthesia, GA with mask, MAC (sedation vs. GA-plan for sedation similar to previous cath)
--- NOTE | 2018-05-09 07:25 | POSTANESTH ---
Post Anesthetic Evaluation Cardiovascular Status: Normal, Stable Respiratory Status: Similar to Pre-op Cond., Tx Decrease in SpO2 Level of Consciousness/Mental Status: Can Participate in Eval Pain Control: Adequate, Prn Tx Ordered Nausea/Vomiting Control: Adequate, Prn Tx Ordered Complications Possibly Related to Anesthesia: None Noted
[2018-05-09] MEDS ORDERED: fentaNYL 100 MCG/2 ML INJ ONE (07:35)
[2018-05-09] MEDS ORDERED: PROPOFOL/EMULSION 500 MG/50 ML BOTTLE IV ONE (07:36)
[2018-05-09] MEDS ORDERED: LIDOCAINE 2% 100 MG/5 ML SYR ONE (07:37)
[2018-05-09] MEDS ORDERED: PHENYLEPHRINE 10 MG/ML SDV ONE (07:38)
[2018-05-09] MEDS ORDERED: ETOMIDATE 20 MG/10 ML VIAL ONE (07:43)
[2018-05-09] MEDS ORDERED: NITROGLYCERIN 1,500 MCG/15 ML VIAL MISC ONE (08:10)
[2018-05-09] MEDS ORDERED: HEPARIN 10,000 UNIT/10 ML MDV (1,000 UNIT/ML) ONE (08:10)
[2018-05-09] MEDS ORDERED: PROTAMINE SULFATE 50 MG/5 ML VIAL IVP ONE ×2 (09:14→09:26)
[2018-05-09] MEDS ORDERED: IBUPROFEN 800 MG TAB PO PRN (09:59)
[2018-05-09] MEDS ORDERED: HYDROmorphONE/DILAUDID 1 MG/ML INJ IVP PRN (09:59)
--- NOTE | 2018-05-09 10:34 | POSTANESTH ---
Post Anesthetic Evaluation Cardiovascular Status: Normal, Stable (HTN per baseline post TAVR) Respiratory Status: Normal, Stable, Similar to Pre-op Cond., Tx Decrease in SpO2 Level of Consciousness/Mental Status: Can Participate in Eval Pain Control: Adequate, Prn Tx Ordered Nausea/Vomiting Control: Adequate, Prn Tx Ordered Complications Possibly Related to Anesthesia: None Noted
[2018-05-09] MEDS: SENNOSIDES/DOCUSATE SODIUM TAB PO SCH ×2 (11:45→20:40)
[2018-05-09] MEDS: ATORVASTATIN CALCIUM 20 MG TAB PO SCH (11:45)
[2018-05-09] MEDS: CARVEDILOL 3.125 MG TAB PO SCH ×2 (11:45→17:41)
[2018-05-09] MEDS: ASPIRIN 325 MG TAB PO SCH (11:45)
--- NOTE | 2018-05-09 12:01 | CPIP ---
DATE OF PROCEDURE: 05/03/2018 INDICATION FOR PROCEDURE: Critical aortic stenosis. CO-SURGEONS: Dr. Aldo Ramos, Dr. Zuly Peña, Dr. Dayne Ley. PROCEDURE: 1. Right 6-Guinean sheath radial A-line. 2. 6-[place]ine[place] sheath left common femoral artery sheathogram. 3. Bilateral Percloses left common femoral artery, upsized to a 16-Guinean sheath. 4. Balloon aortic valvuloplasty using 20 x 60 balloon. 5. Placement of Medtronic CoreValve Evolut PRO by the transfemoral route. HISTORY: Briefly, this is a 67-year-old female with history of critical symptomatic aortic stenosis. The patient was seen by CT surgery and deemed to be a suitable candidate for transfemoral TAVR, sec ondary to the fact the patient had severe pulmonary hypertension ranging close to 80. Given these fi ndings, patient consented for transfemoral TAVR. DESCRIPTION OF PROCEDURE: After informed consent, the patient was brought to [facility] where the patient w as placed under MAC anesthesia. A right IJ line was placed with temporary pacemaker wire placed in t he right ventricle. Left A-line was placed through the left radial. Right 6-Guinean sheath placed in the right radial with pigtail catheter placed into the ascending aorta. Left common femoral artery was accessed with a 6-[place]inean sheath after local lidocaine, upsized to a 16-[place]inean sheath after bilate ral Percloses, valve was crossed with AL1 catheter, straight stiff Glidewire switched out for a pigta il catheter, switched out for a Confida wire. Balloon aortic valvuloplasty commenced with a 20 x 60 mm Z-Med balloon. The patient had been administered a total of 12,000 heparin during the case. After the BAV was performed, we then proceed with placement of Medtronic CoreValve Evolut Pro 29 mm v alve was deployed successfully. Post-deployment, there was no perivalvular leak noted with excellent apposition of the valve. At this time, the wire was pulled back. The sheath was then removed with a bilateral Percloses. The right radial artery was closed with a radial band. Of note, the patient did after deployment of the valve returned to what appeared to be complete heart block, intermittent with first degree block. T emporary pacemaker wire will be kept in place. IMPRESSIONS: Successful placement of Medtronic CoreValve Evolut PRO 29 mm valve by the transfemoral route. PLAN: The patient will admitted to SCU in the ICU. Of note, right common femoral artery was not acc essed, secondary to pseudoaneurysm from prior heart catheterization. This had been repaired by [facility] in the last 24 hours. There will be a repeat ultrasound performed later today to evaluate the right common femoral artery repair. /[id number]/MODL
[2018-05-09] MEDS ORDERED: BACITRACIN IRRIGATION/NS 50,000 UNITS/1,000 ML BTL IRR ONE (12:22)
[2018-05-09] MEDS ORDERED: IOPAMIDOL (ISOVUE-300) 50 ML VIAL ONE (14:07)
[2018-05-09] MEDS ORDERED: LIDO/EPI 1% **for epidural** 30 ML SDV ONE (14:07)
[2018-05-09] MEDS ORDERED: BUPIVACAINE 0.5% 30 ML SDV ONE (14:07)
[2018-05-09] MEDS ORDERED: hydrALAZINE 20 MG/ML VIAL IVP PRN (14:08)
--- NOTE | 2018-05-09 15:45 | HOSPPROG ---
Hospitalist Progress Note Assessment/Plan: DIAGNOSES: # severe , symptomatic with CHF * She has been seen by cardiovascular surgery and at this time TAVR is recommended and the patient is in agreement to proceed * Procedure currently planned for tomorrow # absence of coronary disease on angiography # acute decompensated valvular/dCHF * Improved after diuresis which is currently held as she is stable and with aortic stenosis # Moderate Pulmonary HTN * Suspect multifactorial # HTN currently well controlled # erythrocythemia - likely d/t chronic resp failure, though macrocytosis is present # obesity PLANS: * Routine postop/recovery for TAVR * She will go later today for pacemaker placement * Continue Coreg * No diuresis at this time but follow her respiratory status closely; reassess after her procedures as she is getting some IV saline for the procedures Seen by me today in ICU after her TAVR procedure SUBJECTIVE: Doing well after her TAVR No pain at the access site of significance, and no symptoms to suggest any distal emboli Not short of breath at rest at this time OBJECTIVE Vitals reviewed: Stable without fever Testing Machine Operator, my review: Sinus Exam: alert oriented skin warm dry color ok resps not labored lungs clear BSs heart regular, audible systolic murmur abd soft nondistended nontender, bowel sounds present Her groin site looks good without any hematoma or undue tenderness iv site ok Objective: Vital Signs Temp Pulse Resp BP Pulse Ox 36.4 C 87 24 H 212/87 H 94 05/09/18 11:39 05/09/18 14:29 05/09/18 14:29 05/09/18 14:29 05/09/18 14:29 Laboratory Results 05/05/18 03:29 05/05/18 03:29 05/08/18 05/09/18 05/10/18 06:59 06:59 06:59 Intake Total 1585 Output Total 2100 945 Balance -515 -945 PT 14.5 SEC (12.0-15.0) 05/05/18 03:29 INR 1.11 (0.83-1.16) 05/05/18 03:29 ICD10 Worksheet Patient Problems: Problems Problem Status Onset Acute decompensated heart failure Acute
--- NOTE | 2018-05-09 16:32 | ECHO ---
[email or web address] [place] [id number] Main: [phone] Fax: Transthoracic Echocardiogram Name: ALBA FLOWERS MR#: [id number] Study Date: 05/09/2018 Study Time: 07:54 AM Date of : 1950 Age: 67 year(s) Height: ( ) Weight: ( ) BSA: Gender: Female Examination: Limited Echo Indication: limited echo during TAVR Image Quality: Technically Difficult Contrast: Requested by: Belen Lewis BP: / Heart Rate: Rhythm: Indication: limited echo during TAVR Procedure Staff Field Observer: Josefa Avelar [facility] Reading Physician: Zuly Peña MD Requesting Provider: Eris Ordonez Conclusions: Normal global systolic LV function. Flattened interventricular septum consistent with RV pressure and volume overload. . Post TAVR: Max velocity across the valve 1.83 m/s, 7/13 mmHg mean/max pressure gradient, estimated GWENDOLYN = 2.2cm2. LVOT diam 2.0 cm2. No aortic insufficiency noted.. Trivial pericardial effusion. Measurements: Chambers Valvular Assessment AV/MV Valvular Assessment TV/PV Normal Normal Normal Name Value Range Name Value Range Name Value Range LVOTd 2.0 cm 2.0 cm mm AV Vmax: 1.83 m/s (1 m/s-1.7 m/s) AV maxP mmHg ( - ) AV meanP mmHg ( - ) GWENDOLYN (VTI): 2.2 cm ( - ) Continued Measurements: Findings: Left Ventricle: Normal global systolic LV function. Flattened interventricular septum consistent with RV pressure and volume overload. . Aortic Valve: Post TAVR: Max velocity across the valve 1.83 m/s, 7/13 mmHg mean/max pressure gradient, estimated GWENDOLYN = 2.2cm2. LVOT diam 2.0 cm2. No aortic insufficiency noted.. Pericardium: Trivial pericardial effusion. There is pericardial fat. Patient: ALBA FLOWERS Study Date: 05/09/2018 Page 1 of 2 07:54 AM (No Signature Object) Patient: ALBA FLOWERS Study Date: 05/09/2018 Page 2 of 2 07:54 AM [id number]
[2018-05-10 05:09] LABS: PLATELET COUNT 145 10^3/uL (150-400)
--- NOTE | 2018-05-10 07:32 | PDCARPN ---
Cardiology Progress Note Chief Complaint: SOB Assessment/Plan: Assessment: severe symptomatic HF Plan: 05/08/18 11:[address] Stubbs plan on TAVR in AM full consult dictated NPO after 12 AM 05/09/18 06:53 Stable right groin pseudoaneurysm from prior cath--treated with thrombin NPO plan for TAVR this AM 05/10/18 07:31 doing well >20 hrs in NSR, no PPM at this time d/c temp wire and IJ sheath OOB IS transfer to PCU Subjective: doing well Reviewed/Discussed With: multidisciplinary team Time Spent with Patient: greater than 25 minutes Time Spent with Patient: Greater than 25 minutes spent on this patients care, greater than 50% of time spent counseling, educating, and coordinating care regarding the above mentioned plan. Objective: Vital Signs (8 Hrs) Temp Pulse Resp BP Pulse Ox 05/10/18 04:00 36.6 C 70 20 127/82 H 97 05/10/18 00:00 36.7 C 72 15 153/62 H 96 Intake/Output (24 Hrs) 05/09/18 05/10/18 05/11/18 05:59 05:59 05:59 Intake Total 1750 Output Total 945 Balance -945 1750 Intake: Oral (ml) 1250 IV Infused (ml) 500 Ns 1,000 ml @ TKO IV 500 ONCALL ONE Rx#:[id number] Output: Urine (ml) 945 Bedside Commode 300 Toilet 645 Other: Weight 97.1 kg 97.1 kg 98 kg Intake Quantity Yes Sufficient Number of Voids Bedpan 1 Number of Stools Bedpan 0 Result Diagrams: 05/10/18 04:50 05/10/18 04:50 - Physical Exam Constitutional: no apparent distress Eyes: PERRL Ears, Nose, Mouth, Throat: moist mucous membranes Cardiovascular: regular rate and rhythm Peripheral Pulses: 1+: femoral (R), femoral (L) Respiratory: clear to auscultate bilat Gastrointestinal: normoactive bowel sounds Genitourinary: no suprapubic tenderness Skin: no rashes Musculoskeletal: no muscular tenderness Neurologic: AAOx3 Psychiatric: cooperative ICD10 Worksheet Patient Problems: Problems Problem Status Onset Acute decompensated heart failure Acute
[2018-05-10] MEDS: ATORVASTATIN CALCIUM 20 MG TAB PO SCH (09:04)
[2018-05-10] MEDS: ASPIRIN 325 MG TAB PO SCH (09:04)
[2018-05-10] MEDS: CARVEDILOL 3.125 MG TAB PO SCH (09:04)
[2018-05-10] MEDS: SENNOSIDES/DOCUSATE SODIUM TAB PO SCH ×2 (09:04→23:40)
--- NOTE | 2018-05-10 09:36 | ASMTCMCOM ---
CM Note CM Note Notes: Patient had a transfemoral TAVR yesterday. Patient in recovery today in the ICU. No therapies ordered at this time. Likely patient will discharge to outpatient cardiac rehab. CM available for any d/c needs that might arise. Date Signed: 05/10/2018 09:35 AM Electronically Signed By:Magdalena Chin LCSW
[2018-05-10] MEDS: LOSARTAN POTASSIUM 25 MG TAB PO SCH (10:17)
--- NOTE | 2018-05-10 10:24 | ECHO ---
[email or web address] [address] [address] Main: [phone] Fax: Transthoracic Echocardiogram Name: ALBA FLOWERS MR#: [id number] Study Date: 05/10/2018 Study Time: 07:55 AM Date of : 1950 Age: 67 year(s) Height: 167.6 cm (66 in.) Weight: 97.07 kg (214 lb.) BSA: 2.06 m2 Gender: Female Examination: Echo Indication: Post TAVR 24 hours Image Quality: Technically Difficult Contrast: Requested by: Eris Ordonez BP: 138 mmHg/77 mmHg Heart Rate: Rhythm: Indication: Post TAVR 24 hours Procedure Staff Proof Operator: Maryellen Hill RDCS Reading Physician: Eris Ordonez MD Requesting Provider: Conclusions: Mild concentric LV hypertrophy. The ejection fraction is estimated to be 60-65 %. Flattened interventricular septum consistent with RV pressure/volume overload.. Moderately dilated right ventricle. Moderately reduced RV function. There is no aortic valve regurgitation. Core valve in place. AV max PG is 17mmHG. AV mean PG is 10mmHG.. Mild tricuspid regurgitation is present. RVSP is 51mmHG.. Measurements: Chambers Valvular Assessment AV/MV Valvular Assessment TV/PV Normal Normal Normal Name Value Range Name Value Range Name Value Range IVSd (2D): 1.4 cm (0.6 cm-1.1 AV Vmax: 2.05 m/s (1 m/s-1.7 TR Vmax: 3.22 mm/s ( - ) cm) m/s) TR PGmax: 41 mmHg ( - ) LVDd (2D): 3.8 cm (3.9 cm-5.3 AV meanP mmHg ( - ) syst. PAP: 51 mmHg ( - ) cm) GWENDOLYN (VTI): 1.7 cm ( - ) LVPWd (2D): 1.2 cm ( - ) MV E Vmax: 0.74 m/s ( - ) LVOTd 2.0 cm 2.0 cm mm MV A Vmax: 0.96 m/s ( - ) EF Range: 60-65 % MV E/A: 0.77 ( - ) Continued Measurements: Chambers Valvular Assessment AV/MV Valvular Assessment TV/PV Name Value Name Value Name Value LADs: 4.4 cm MV E' Septal: 0.03 m/s CVP (est.): 10 mmHg LADs Lon.5 cm MV E/E' Septal: 21.70 LA Area: 24.0 cm2 MV E/E' Lateral: 15.50 Patient: ALBA FLOWERS Study Date: 05/10/2018 Page 1 of 2 07:55 AM Additional Vessels Name Value Inferior Vena Cava: 2.4 cm Findings: Left Ventricle: The left ventricle cavity is small. Mild concentric LV hypertrophy. The ejection fraction is estimated to be 60-65 %. Diastolic dysfunction is present. . Flattened interventricular septum consistent with RV pressure/volume overload.. Right Ventricle: Moderately dilated right ventricle. Moderately reduced RV function. Temporary pacer wire still in place.. Left Atrium: The left atrium is mildly dilated. Right Atrium: The right atrium is moderately dilated. Mitral Valve: Mild mitral valve leaflet calcification is present. There is no mitral valve regurgitation. Aortic Valve: There is no aortic valve regurgitation. Core valve in place. AV max PG is 17mmHG. AV mean PG is 10mmHG.. Tricuspid Valve: The tricuspid valve is normal in appearance and function. Mild tricuspid regurgitation is present. The pulmonary artery pressure is mildly increased. RVSP is 51mmHG.. Pulmonic Valve: Pulmonary valve not well visualized. Aorta: The aorta is normal. Pericardium: Trivial pericardial effusion. Left side pleural effusion. (No Signature Object) Patient: ALBA FLOWERS Study Date: 05/10/2018 Page 2 of 2 07:55 AM [id number]
--- NOTE | 2018-05-10 12:08 | HOSPPROG ---
Hospitalist Progress Note Assessment/Plan: DIAGNOSES: # severe , symptomatic with CHF * S/p TAVR procedure on 05/09 * Being followed by CT Surgery # absence of coronary disease on angiography # acute decompensated valvular/dCHF * Improved after diuresis which is currently held as she is stable and with aortic stenosis # Moderate Pulmonary HTN * Suspect multifactorial # HTN currently well controlled # erythrocythemia - likely d/t chronic resp failure, though macrocytosis is present # obesity PLANS: * Routine postop/recovery for TAVR * No diuresis at this time but follow her respiratory status closely; reassess after her procedures as she is getting some IV saline for the procedures Subjective: Patient reports feeling well this AM Objective: Vital Signs Temp Pulse Resp BP Pulse Ox 36.4 C 73 21 H 124/67 H 90 L 05/10/18 11:35 05/10/18 11:35 05/10/18 11:35 05/10/18 11:35 05/10/18 11:35 Laboratory Results 05/10/18 04:50 05/10/18 04:50 05/09/18 05/10/18 05/11/18 05:59 05:59 05:59 Intake Total 1750 Output Total 945 300 Balance -945 1750 -300 PT 14.5 SEC (12.0-15.0) 05/05/18 03:29 INR 1.11 (0.83-1.16) 05/05/18 03:29 - Physical Exam Constitutional: no apparent distress Eyes: PERRL Ears, Nose, Mouth, Throat: moist mucous membranes Cardiovascular: regular rate and rhythym Respiratory: no respiratory distress Gastrointestinal: soft, non-tender abdomen Skin: warm Neurologic: AAOx3 Psychiatric: interacting appropriately ICD10 Worksheet Patient Problems: Problems Problem Status Onset Acute decompensated heart failure Acute
[2018-05-10] MEDS ORDERED: FUROSEMIDE 40 MG/4 ML VIAL IVP ONE (16:27)
[2018-05-11 04:37] LABS: PLATELET COUNT 152 10^3/uL (150-400)
[2018-05-11 07:35] VITALS: BP 148/87
--- NOTE | 2018-05-11 09:59 | PDHOMEO2F ---
Home Oxygen Face to Face Home Orders: I certify that a physician or a nurse practitioner or physician's medical practice assistant has had a xava-al-brhm encounter with this patient on the date of this order due to the diagnosis listed, which relates to the primary reason the patient requires home oxygen. Alternative treatments have been tried, or considered, and deemed ineffective. It is anticipated that supplemental oxygen will result in improvement with treatment. Home oxygen qualifying diagnosis: DCHF SpO2 on room air (%): 82% Frequency of home oxygen needed: continuous Home oxygen liters per minute: 1 Home oxygen delivery device: nasal cannula Concentrator: Yes E-tanks for mobility and back up: Yes If ordering portable O2, is the patient mobile in the home?: Yes I certify that, based on these findings, the home oxygen is medically necessary for this patient for the following length of time. Length of time home oxygen needed: 99 years
[2018-05-11] MEDS: ASPIRIN 325 MG TAB PO SCH (10:24)
[2018-05-11] MEDS: SENNOSIDES/DOCUSATE SODIUM TAB PO SCH (10:24)
[2018-05-11] MEDS: ATORVASTATIN CALCIUM 20 MG TAB PO SCH (10:24)
[2018-05-11] MEDS: LOSARTAN POTASSIUM 25 MG TAB PO SCH (10:25)
--- NOTE | 2018-05-11 12:29 | ASMTLACE ---
LACE Length of stay for Answers: 7-13 days current admission Acuity / Level of Answers: Yes Care: Did the patient have an inpatient admission? Comorbidities - select Answers: Other Notes: HTN all that apply # of Emergency department Answers: 1-2 visits in the last 6 months Score: 10 Date Signed: 05/11/2018 12:29 PM Electronically Signed By:PETER Cheng
--- NOTE | 2018-05-11 12:33 | ASMTCMCOM ---
CM Note CM Note Notes: Pts case discussed w/ MILES Farah and SARI Putnam. CM met w/ pt for dispo planning. PT is recommending HC. OT is recommending HC vs 24hr supervision vs SNF. Pt is not interested in HC at this time. CM informed pt that if she changes her mind she can call her PCP to have him/her order it. Pt reports that she understands. No other needs at this time. CM available for changes. Plan: Independent Date Signed: 05/11/2018 12:32 PM Electronically Signed By:PETER Cheng
--- NOTE | 2018-05-11 15:47 | GDS ---
DISCHARGE DIAGNOSES: 1. Severe aortic stenosis, status post TAVR. 2. Severe pulmonary hypertension. 3. Pseudoaneurysm on this admission secondary to cardiac catheterization. 4. Morbid obesity. 5. Hypertension. 6. Mild carotid disease. 7. Hypoxic respiratory failure. PROCEDURES: 1. 05/05/2018, left heart catheterization with normal course. 2. 04/25/2018, right heart catheterization with a mean wedge pressure of 21, a PASP of 78, and an RVSP of 84. 3. 05/03/2018, chest x-ray, which shows cardiomegaly, with a small right pleural effusion and marked fullness in the right hilum. 4. 05/04, echocardiogram and 05/05 transesophageal echo. 5. 05/06/2018, carotid Dopplers, which show a small ulcerated plaque in the left carotid bifurcation. 6. Abdominal and pelvic CTA, which shows sigmoid diverticulosis. Ascending thoracic aorta and descending aorta measure within normal limits. 7. 05/06/2018, CTA of chest, which shows normal carotid vessel size, with normal takeoff from the great vessels from the aortic arch. The ascending aorta measures 3.5 cm. The descending aorta measures 2.3 cm. 8. 05/08/2018, pseudoaneurysm repair. 9. 05/09/2018, placement of a [employer] CoreValve via transfemoral route. BRIEF HISTORY: Please see dictated H and P for complete details. In brief, the patient is a 67-year-old female who receives no regular medical care, who presented to [facility] due to progressive shortness of breath, dyspnea on exertion, and new onset lower extremity edema over the past 2 weeks. An echo was obtained and showed pulmonary hypertension, mild concentric LVH, moderate RV dilation and severe calcific aortic stenosis. Due to mildly elevated troponin, she was taken to the cardiac catheterization laboratory and found to have normal coronary arteries. HOSPITAL COURSE BY PROBLEM: 1. New-onset diastolic right heart failure. She has been treated with diuresis. She has proceeded to aortic valve replacement by transcatheter approach. Echo on 05/10/2018, shows normal LVEF. There is a flattened interventricular septum and dilated right ventricle, with moderately reduced RV function. Her CoreValve is in place, has a max gradient of 17 mmHg with a mean of 10 mmHg. 2. Hypertension. She has been started on losartan in this admission. 3. Diastolic and right heart failure. She will be discharged on Lasix. She will need followup BMP in 1 week's time. She will need outpatient sleep study and pulmonary evaluations. 4. Carotid plaquing. She has been placed on statin and aspirin for this. She will need followup lipids in the next few weeks. 5. Pseudoaneurysm. This has been repaired on day of discharge. She has no bruit auscultated, but does have severe ecchymosis in her bilateral groin regions. PHYSICAL EXAM: VITAL SIGNS: On day of discharge, blood pressure 148/87, heart rate of 72, respirations 12, O2 saturation 93% on 1 L/minute. Room air sat of 82%. GENERAL: She is a pleasant female in no apparent distress. HEENT: Head is normocephalic, atraumatic. HEART: Regular rate and rhythm, with a 2/6 systolic ejection murmur. LUNGS: Clear on the right and diminished on the left , with mild crackles. ABDOMEN: Obese, nontender. Bilateral groin sites with extensive ecchymosis, without bruit. EXTREMITIES: She has 2+ PT and DP pulses. LABORATORY DATA: CBC on day of discharge, WBC 8.31, hemoglobin 15.8, hematocrit 48.7, platelet count 152. BMP with sodium 137, potassium 4.7, chloride 107, CO2 27, BUN 10, creatinine 0.5, glucose of 106. NT-proBNP 1100. Total cholesterol 150, triglycerides 87, LDL of 66, HDL of 67. RESULTS PENDING: None. DIET: Per previous. ACTIVITY: Groin precautions were reviewed extensively. DISCHARGE MEDICATIONS: Please see med reconciliation. She is being started on Klor-Con 10 mEq daily, losartan 25 mg p.o. daily, furosemide 40 mg p.o. daily, atorvastatin 20 mg p.o. daily, aspirin 325 mg p.o. daily. FOLLOWUP INSTRUCTIONS: 1. Follow up with Dr. Ordonez on 05/19/2018. 2. Groin precautions. 3. BMP and BNP in 1 week's time. 4. Lipids and CMP in 6 weeks' time. Please note that greater than 30 minutes was spent on discharge and coordination of care. /[id number]/MODL MTDD
== END 2018-05-11 14:14 | disposition home or self-care (01) | DRG 266 ==
LOC: F2W 17:55 → F2N 05-09 09:48 → F2W 05-10 15:15
PROVIDERS: ADMIT Internal Medicine; ATTEND Internal Medicine
DX: I35.0 Nonrheumatic aortic (valve) stenosis (principal); Z00.6 Encounter for examination for normal comparison and control in clinical research program; I11.0 Hypertensive heart disease with heart failure; I50.31 Acute diastolic (congestive) heart failure; J96.21 Acute and chronic respiratory failure with hypoxia; E66.9 Obesity, unspecified; I27.20 Pulmonary hypertension, unspecified; Z68.35 Body mass index [BMI] 35.0-35.9, adult
CPT/HCPCS: 84484-ER; 96374; 97116-GP; 97162-GP; 97165-GO; 97530-GP; 97535-GO; C1760; C1769; J0360; J0690; J1644; J1650; J1940; J2001; J2250; J2370; J2704; J2720; J3010; Q9967